=== PATIENT | male | born 1965 | race Caucasian/White ===

== ENCOUNTER 2016-09-10 08:32 | Emergency (ER) | payer OTHER ==
[~2016-09-10] VITALS: Ht 180.3 cm; Wt 80.0 kg
[~2016-09-10 08:32] MED LIST: ASPI325T PO; CLOP75TA PO; LIPI80TA PO; LISI10TA3 PO; MULT1TAB46 PO
[2016-09-10 08:37] VITALS: BP 174/94; PULSE 87; RESP 24; TEMP 97.9; O2SAT 97
[2016-09-10 08:45] VITALS: BP 178/100; PULSE 80; RESP 18; O2SAT 98
--- NOTE | 2016-09-10 08:56 | PD ---
HPI Chief Complaint: Pain: Acute or Chronic Time Seen by Provider: 08:46 Travel History International Travel<30 days: No Contact w/Intl Traveler<30days: No Traveled to known affect area: No History of Present Illness HPI 51-year-old male with history of cervical spine fracture with 2 separate surgeries, here for evaluation of neck pain and stiffness. Symptoms started yesterday morning when he woke up, and have been persistent. He is not having pain that radiates mainly on his left neck up to his left side of his head which she describes as stabbing, severe, constant, worse with movement and palpation. He denies trauma. No fevers or chills. No rash. No IVDU. No paresthesias or motor deficits. PFSH Past Medical History Cancer: No Cardiovascular Problems: Yes (PVD) High Cholesterol: Yes Diabetes: No Diminished Hearing: No Endocrine: No Genitourinary: No Hepatitis: No Hiatal Hernia: No Hypertension: Yes Immune Disorder: No Musculoskeletal: Yes (HX CERVICAL FRACTURE) Neurologic: No Psychiatric: No Reproductive: No Respiratory: No Thyroid Disease: No Tetanus Vaccination: Unknown Influenza Vaccination: No ?: Not Past Surgical History Abdominal Surgery: No Body Medical Devices: PLATE C3-4, SCREW C1 Cardiac Surgery: No Ear Surgery: No Endocrine Surgery: No Eye Surgery: No Genitourinary Surgery: No Neurologic Surgery: Yes (CERVICAL SX (20 YEARS AGO),2007 CERVICAL FUSION ) Oral Surgery: No Thoracic Surgery: No Other Surgery: Yes (POPLITEAL BYPASS ) Social History Alcohol Use: No (QUIT) Tobacco Use: Yes (1ppd) Substance Use: Yes (MARIJUANA OCCASIONALLY ) Allergies-Medications (Allergen,Severity, Reaction): Coded Allergies: No Known Allergies (Verified , 08/13/16) Reported Meds & Prescriptions Reported Meds & Active Scripts Active Clopidogrel (Clopidogrel Bisulfate) 75 Mg Tab 75 Mg PO DAILY Lipitor (Atorvastatin Calcium) 80 Mg Tab 80 Mg PO HS Lisinopril 10 Mg Tab 10 Mg PO DAILY Reported Multi Vitamin Daily (Multiple Vitamin) 1 Tab Tab 1 Tab PO DAILY Aspirin 325 Mg Tab 325 Mg PO HS Review of Systems Except as stated in HPI: all other systems reviewed are Neg Physical Exam Narrative GENERAL: Well-developed, well-nourished, no acute distress. SKIN: Warm and dry. No rash. HEAD: Atraumatic. Normocephalic. EYES: Pupils equal and round. No scleral icterus. No injection or drainage. ENT: Mucous membranes pink and moist. NECK: Trachea midline. No JVD. No midline cervical spine step-off or tenderness. Patient unwilling to move neck secondary to pain. There is point tenderness over the left trapezius and left sternocleidomastoid muscle. No masses. CARDIOVASCULAR: Regular rate and rhythm. RESPIRATORY: No accessory muscle use. Clear to auscultation. Breath sounds equal bilaterally. MUSCULOSKELETAL: No obvious deformities. No clubbing. No cyanosis. No edema. NEUROLOGICAL: Awake and alert. No obvious cranial nerve deficits. Motor grossly within normal limits. Normal speech. Normal muscle strength and sensation in bilateral upper and lower extremities. PSYCHIATRIC: Appropriate mood and affect; insight and judgment normal. Data Data Last Documented VS Vital Signs Date Time Temp Pulse Resp B/P Pulse Ox O2 Delivery O2 Flow Rate FiO2 09/10/16 11:18 56 18 125/82 97 Room Air 09/10/16 08:37 97.9 Orders Basic Metabolic Panel (Bmp) (09/10/16 08:52) Complete Blood Count With Diff (09/10/16 08:52) Prothrombin Time / Inr (Pt) (09/10/16 08:52) Act Partial Throm Time (Ptt) (09/10/16 08:52) Iv Access Insert/Monitor (09/10/16 08:52) Ecg Monitoring (09/10/16 08:52) Oximetry (09/10/16 08:52) Sodium Chloride 0.9% Flush (Ns Flush) (09/10/16 09:00) Hydromorphone Pf Inj (Dilaudid Pf Inj) (09/10/16 09:00) Orphenadrine Inj (Norflex Inj) (09/10/16 09:00) Ct Cerv Spine W/O Contrast (09/10/16 ) Ct Brain W/O Iv Contrast(Rout) (09/10/16 ) Ct Soft Tiss Neck W Iv Cont (09/10/16 ) Iohexol 350 Inj (Omnipaque 350 Inj) (09/10/16 10:51) Ketorolac Inj (Toradol Inj) (09/10/16 12:00) Labs Laboratory Tests Test 09/10/16 09:10 White Blood Count 7.9 TH/MM3 Red Blood Count 4.48 MIL/MM3 Hemoglobin 13.9 GM/DL Hematocrit 40.0 % Mean Corpuscular Volume 89.2 FL Mean Corpuscular Hemoglobin 31.1 PG Mean Corpuscular Hemoglobin 34.9 % Concent Red Cell Distribution Width 13.6 % Platelet Count 305 TH/MM3 Mean Platelet Volume 7.5 FL Neutrophils (%) (Auto) 69.4 % Lymphocytes (%) (Auto) 20.3 % Monocytes (%) (Auto) 9.5 % Eosinophils (%) (Auto) 0.5 % Basophils (%) (Auto) 0.3 % Neutrophils # (Auto) 5.5 TH/MM3 Lymphocytes # (Auto) 1.6 TH/MM3 Monocytes # (Auto) 0.8 TH/MM3 Eosinophils # (Auto) 0.0 TH/MM3 Basophils # (Auto) 0.0 TH/MM3 CBC Comment DIFF FINAL Differential Comment Prothrombin Time 10.7 SEC Prothromb Time International 1.0 RATIO Ratio Activated Partial 25.1 SEC Thromboplast Time Sodium Level 135 MEQ/L Potassium Level 4.2 MEQ/L Chloride Level 102 MEQ/L Carbon Dioxide Level 25.5 MEQ/L Anion Gap 8 MEQ/L Blood Urea Nitrogen 7 MG/DL Creatinine 1.09 MG/DL Estimat Glomerular Filtration 71 ML/MIN Rate Random Glucose 124 MG/DL Calcium Level 9.2 MG/DL MDM Medical Decision Making Medical Screen Exam Complete: Yes Emergency Medical Condition: Yes Differential Diagnosis Torticollis, muscle spasm, meningitis less likely, Narrative Course Vital signs show heart rate 87, blood pressure 174/94, pulse ox 97% on room air , oral temp of 97.9F. CBC is unremarkable. BMP is unremarkable. CT head: CONCLUSION: 1. Encephalomalacia involving the posterior and inferior aspects of the cerebellum bilaterally suggesting old infarcts. 2. Old lacunar infarct within the right thalamus. 3. No acute infarct, acute hemorrhage, mass effect or extraaxial fluid collections. 4. 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 5. Mucosal thickening involving the right frontal sinus. CT cervical spine: CONCLUSION: Stable exam. No acute abnormality noted. The loss of the cervical lordosis and kyphosis of the cervical spine contribute to osseous narrowing of the level of C3-C7. CT soft tissue neck: CONCLUSION: No acute soft tissue findings in the neck. Patient was made aware of all findings and was provided a copy of CT reports. He was given a dose of pain medication and muscle relaxant and is feeling a lot better. I do not believe he has meningitis. He is afebrile. Normal WBC count. No rash. He has no paresthesias or motor deficits on exam. I believe his symptoms are musculoskeletal in origin and he has point tenderness over his left trapezius and left sternocleidomastoid muscle. This is torticollis. He is stable for discharge home with outpatient follow-up with his primary care physician this week. He was informed on when to return to the emergency department. He verbalizes understanding and agreement with plan. The patient was counseled on smoking cessation. Diagnosis Primary Impression: Torticollis Referrals: Primary Care Physician 3 days Additional Instructions: Follow-up with your primary care physician this week. Return to the emergency department for worsening symptoms or any other concerns. Scripts Methocarbamol (Robaxin)500 Mg Gbm180 Mg PO QID #20 TAB Ref 0 Prov:Emery Madsen MD 09/10/16 Oxycodone-Acetaminophen (Percocet)10-325 mg Tab1 Tab PO Q6H PRN (PAIN) #15 TAB Ref 0 Prov:Emery Madsen MD 09/10/16 Disposition: 01 DISCHARGE HOME Condition: Stable Emery Madsen MD Sep 10, 2016 08:56
[2016-09-10] MEDS ORDERED: SODIUM CHLORIDE 0.9% FLUSH 5 ML FLUSH IVF PRN (09:00)
[2016-09-10] MEDS ORDERED: ORPHENADRINE INJ 60 MG/2 ML AMP IM ONE (09:00)
[2016-09-10] MEDS ORDERED: HYDROmorphone HCL PF 1 MG/ML VIAL IVS ONE (09:00)
[2016-09-10 09:32] VITALS: O2SAT 98
[2016-09-10 09:52] LABS: AUTOMATED NEUTROPHIL # 5.5 TH/MM3 (1.8-7.7); BASOPHIL % 0.3 % (0.0-2.0); EOSINOPHIL % 0.5 % (0.0-4.0); HEMO FLAGS DIFF FINAL; LYMPH % 20.3 % (9.0-44.0); LYMPHOCYTE # 1.6 TH/MM3 (1.0-4.8); MEAN CELL VOLUME 89.2 FL (80.0-100.0); MEAN CORPUSCULAR HEMOGLOBIN 31.1 PG (27.0-34.0); MEAN CORPUSCULAR HGB CONC 34.9 % (32.0-36.0); MONO % 9.5 % (0.0-8.0); NEUT % 69.4 % (16.0-70.0); PLATELET COUNT 305 TH/MM3 (150-450); RED BLOOD COUNT 4.48 MIL/MM3 (4.50-5.90); RED CELL DISTRIBUTION WIDTH 13.6 % (11.6-17.2); WHITE BLOOD COUNT 7.9 TH/MM3 (4.0-11.0)
[2016-09-10 10:01] LABS: APTT (PATIENT) 25.1 SEC (24.3-30.1); PROTHROMBIN TIME - PATIENT 10.7 SEC (9.8-11.6)
[2016-09-10 10:13] LABS: BICARBONATE 25.5 MEQ/L (21.0-32.0)
[2016-09-10 10:14] LABS: POTASSIUM 4.2 MEQ/L (3.5-5.1)
[2016-09-10] MEDS ORDERED: IOHEXOL 350 MG/ML 10 ML VIAL (for RAD DIAG) IV ONE (10:51)
--- NOTE | 2016-09-10 10:54 | RADRPT ---
EXAM DATE/TIME: 09/10/2016 10:37 [facility] COMPARISON: CT BRAIN W/O CONTRAST, July 24, 2011, 14:07. INDICATIONS: Cephalgia. RADIATION DOSE: 40.23 CTDIvol (mGy) MEDICAL HISTORY: Cardiovascular disease. Hypertension. SURGICAL HISTORY: Cervical fusion. ENCOUNTER: Initial ACUITY: 1 day PAIN SCALE: 10/10 LOCATION: Cranial TECHNIQUE: Multiple contiguous axial images were obtained of the head. Using automated exposure control and adj ustment of the mA and/or kV according to patient size, radiation dose was kept as low as reasonably a chievable to obtain optimal diagnostic quality images. FINDINGS: Encephalomalacia is again noted within the posterior and inferior aspects of the cerebellar hemispher es consistent with old infarcts. There is an old lacunar infarct involving the right thalamus. There i s no acute hemorrhage, midline shift or extraaxial fluid collections. The ventricles, sulci and cisterns are un remarkable. There is a calcified mass within the right frontal sinus consistent with probable osteoma which is st able. Mucosal thickening is noted within the right frontal sinus also. CONCLUSION: 1. Encephalomalacia involving the posterior and inferior aspects of the cerebellum bilaterally sugge sting old infarcts. 2. Old lacunar infarct within the right thalamus. 3. No acute infarct, acute hemorrhage, mass effect or extraaxial fluid collections. 4. 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 5. Mucosal thickening involving the right frontal sinus. Robert Rodríguez MD on September 10, 2016 at 10:45 Board Certified Radiologist. This report was verified electronically.
--- NOTE | 2016-09-10 11:15 | RADRPT ---
EXAM DATE/TIME: 09/10/2016 10:41 [facility] COMPARISON: CT CERVICAL SPINE W/O CONTRAST, May 06, 2014, 10:00. INDICATIONS : Neck pain, no known trauma. IV CONTRAST: 65 cc Omnipaque 350 (iohexol) IV RADIATION DOSE: 19.12 CTDIvol (mGy) MEDICAL HISTORY : Hypertension. Cardiovascular disease SURGICAL HISTORY : Cervical fusion. ENCOUNTER: Initial ACUITY: 1 day PAIN SCALE: 10/10 LOCATION: neck TECHNIQUE: Volumetric scanning of the neck was performed. Using automated exposure control and adjustment of th e mA and/or kV according to patient size, radiation dose was kept as low as reasonably achievable to obtain optimal diagnostic quality images. FINDINGS: NASOPHARYNX: The nasopharyngeal airway has a normal configuration. No mucosal thickening or mass is seen. OROPHARYNX: The intrinsic muscles of the tongue are symmetric. The tonsillar pillars are intact. The prevertebr al soft tissues are not thickened. LARYNX: The supraglottic, glottic, and infraglottic structures are intact. PARAPHARYNGEAL: The parapharyngeal space is intact. SALIVARY GLANDS: The parotid and submandibular glands are intact. LYMPH NODES: No enlarged or necrotic-appearing nodes. THYROID: Homogeneous enhancement without evidence of nodule. BONES: See report of CT cervical spine same date. CONCLUSION: No acute soft tissue findings in the neck. Donavan Vallejo MD on September 10, 2016 at 11:03 Board Certified Radiologist. This report was verified electronically.
[2016-09-10 11:18] VITALS: BP 125/82; PULSE 56; RESP 18; O2SAT 97
--- NOTE | 2016-09-10 11:46 | RADRPT ---
EXAM DATE/TIME: 09/10/2016 10:41 [facility] COMPARISON: CT CERVICAL SPINE W/O CONTRAST, May 06, 2014, 10:00. INDICATIONS : Neck pain, no known trauma. RADIATION DOSE: 19.12 ; Reconstructed from previous dataset MEDICAL HISTORY : Hypertension. Cardiovascular disease SURGICAL HISTORY : Cervical fusion. ENCOUNTER: Initial ACUITY: 1 day PAIN SCALE: 10/10 LOCATION: Left neck TECHNIQUE: Volumetric scanning of the cervical spine was performed. Multiplanar reconstructions in the sagittal, coronal and oblique axial planes were performed. Using automated exposure control and adjustment o f the mA and/or kV according to patient size, radiation dose was kept as low as reasonably achievable to obtain optimal diagnostic quality images. FINDINGS: There is stable fusion of c3-c4 with complete osseous incorporation of the disc. There is also fusion identified posteriorly with a screw through the left c2 transverse process. The transverse processes at the level of c2 and c3 are fused. There is loss of the normal cervical lordosis with focal reversal and kyphosis seen from the level of c3 through c7. This contributes to osseous narrowing of the spinal canal at the level of C3-C5/C6. T his is most severe at the level of C5/C6 where there is also significant bilateral neural foraminal n arrowing. No evidence of fracture or dislocation. The prevertebral soft tissues are normal. The vascular structures are significant for atherosclerosis identified within the carotid bulb. No evidence of dissection. Soft tissues are otherwise unremarkab le. CONCLUSION: Stable exam. No acute abnormality noted. The loss of the cervical lordosis and kyphosis of the cervic al spine contribute to osseous narrowing of the level of C3-C7. Klarissa Emery MD on September 10, 2016 at 11:35 Board Certified Radiologist. This report was verified electronically.
[2016-09-10] MEDS ORDERED: KETOROLAC TROMETHAMINE 30 MG/ML (IVP) VIAL IV PUSH ONE (12:00)
[2016-09-10] MEDS ORDERED: PERC10TA27 PO (12:07)
[2016-09-10] MEDS ORDERED: ROBA500T PO (12:07)
[2016-09-10 12:46] VITALS: BP 129/90; PULSE 62; RESP 18; O2SAT 97
[2017-02-22] MEDS ORDERED: CENTCHW4 PO (08:43)
[2017-02-22] MEDS ORDERED: AMOX500T PO (08:43)
[2017-02-22] MEDS ORDERED: HYDR10SO2 PO (08:43)
== END 2016-09-10 13:21 | disposition home or self-care (01) ==
LOC: NEPC 08:32
DX: M43.6 Torticollis (principal); G93.89 Other specified disorders of brain; I10 Essential (primary) hypertension; I73.9 Peripheral vascular disease, unspecified; F17.200 Nicotine dependence, unspecified, uncomplicated; Z79.02 Long term (current) use of antithrombotics/antiplatelets; Z79.82 Long term (current) use of aspirin; Z79.899 Other long term (current) drug therapy
CPT/HCPCS: 70450; 70491; 72125; 80048; 85025; 85610; 85730; 96372; 96374; 96375; 99284; J1170; J1885; J2360; Q9967

== ENCOUNTER 2016-09-28 15:00 | Emergency (ER) | payer OTHER ==
[~2016-09-28] VITALS: Ht 180.3 cm; Wt 76.6 kg
[~2016-09-28 15:00] MED LIST changes: +PERC10TA27 PO; +ROBA500T PO
[2016-09-28 15:03] VITALS: BP 176/101; PULSE 77; RESP 12; TEMP 97.6; O2SAT 99
[2016-09-28] MEDS ORDERED: DEXAMETHASONE SOD PHOS 20 MG/5 ML VIAL IM ONE (15:45)
[2016-09-28] MEDS ORDERED: KETOROLAC TROMETHAMINE 60 MG/2 ML (IM) VIAL IM ONE (15:45)
[2016-09-28] MEDS ORDERED: ORPHENADRINE INJ 60 MG/2 ML AMP IM ONE (15:45)
--- NOTE | 2016-09-28 16:01 | PD ---
HPI Chief Complaint: Back/ Neck Pain or Injury Time Seen by Provider: 15:42 Travel History International Travel<30 days: No Contact w/Intl Traveler<30days: No Traveled to known affect area: No History of Present Illness HPI Patient is a 51-year-old male who presents emergency department with complaint of neck stiffness. Patient states he was seen and evaluated here on 10 September and diagnosed with muscle spasms. Patient states that he had improvement in his symptoms while he was taking Robaxin that was prescribed at his visit in the emergency department. He denies any new injury or trauma. He states symptoms have been stable with the exception of the brief improvement while on Robaxin. He denies any other complaints at this time. He does state that he recently obtained patient assistance, and was evaluated in the clinic. He was a little disheartened that he was unable to be referred to a neurosurgeon. PFSH Past Medical History Cancer: No Cardiovascular Problems: Yes (PVD) High Cholesterol: Yes Diabetes: No Diminished Hearing: No Endocrine: No Genitourinary: No Hepatitis: No Hiatal Hernia: No Hypertension: Yes Immune Disorder: No Musculoskeletal: Yes (HX CERVICAL FRACTURE) Neurologic: No Psychiatric: No Reproductive: No Respiratory: No Thyroid Disease: No Past Surgical History Abdominal Surgery: No Body Medical Devices: PLATE C3-4, SCREW C1 Cardiac Surgery: No Ear Surgery: No Endocrine Surgery: No Eye Surgery: No Genitourinary Surgery: No Neurologic Surgery: Yes (CERVICAL SX (20 YEARS AGO),2007 CERVICAL FUSION ) Oral Surgery: No Thoracic Surgery: No Other Surgery: Yes (POPLITEAL BYPASS ) Social History Alcohol Use: No (QUIT) Tobacco Use: Yes (1ppd) Substance Use: Yes (MARIJUANA OCCASIONALLY ) Allergies-Medications (Allergen,Severity, Reaction): Coded Allergies: No Known Allergies (Verified , 09/28/16) Reported Meds & Prescriptions Reported Meds & Active Scripts Active Robaxin (Methocarbamol) 500 Mg Tab 500 Mg PO QID Percocet (Oxycodone-Acetaminophen) 10-325 mg Tab 1 Tab PO Q6H PRN Clopidogrel (Clopidogrel Bisulfate) 75 Mg Tab 75 Mg PO DAILY Lipitor (Atorvastatin Calcium) 80 Mg Tab 80 Mg PO HS Lisinopril 10 Mg Tab 10 Mg PO DAILY Reported Multi Vitamin Daily (Multiple Vitamin) 1 Tab Tab 1 Tab PO DAILY Aspirin 325 Mg Tab 325 Mg PO HS Review of Systems Except as stated in HPI: all other systems reviewed are Neg Musculoskeletal: Positive: Myalgias, Cramping, Pain Physical Exam Narrative GENERAL: Well-nourished, well-developed patient. SKIN: Warm and dry. HEAD: Normocephalic. EYES: No scleral icterus. No injection or drainage. NECK: Supple, trachea midline. No JVD or lymphadenopathy. Significantly decreased range of motion in regards to rotation of neck to the left or the right. Decreased range of motion with flexion and extension. Patient in paraspinal musculature in the cervical region. CARDIOVASCULAR: Regular rate and rhythm without murmurs, gallops, or rubs. RESPIRATORY: Breath sounds equal bilaterally. No accessory muscle use. GASTROINTESTINAL: Abdomen soft, non-tender, nondistended. MUSCULOSKELETAL: No cyanosis, or edema. 5/5 muscle strength in bilateral upper extremities. BACK: Nontender without obvious deformity. No CVA tenderness. Data Data Last Documented VS Vital Signs Date Time Temp Pulse Resp B/P Pulse Ox O2 Delivery O2 Flow Rate FiO2 09/28/16 15:03 97.6 77 12 176/101 99 Room Air Orders Dexamethasone Inj (Decadron Inj) (09/28/16 15:45) Orphenadrine Inj (Norflex Inj) (09/28/16 15:45) Ketorolac Inj (Toradol Inj) (09/28/16 15:45) MDM Medical Decision Making Medical Screen Exam Complete: Yes Emergency Medical Condition: Yes Interpretation(s) Vital Signs Date Time Temp Pulse Resp B/P Pulse Ox O2 Delivery O2 Flow Rate FiO2 09/28/16 15:03 97.6 77 12 176/101 99 Room Air Differential Diagnosis Strain versus sprain versus spasm versus discogenic pain versus other Narrative Course Patient is a 51-year-old male who presents to emergency department for reevaluation of neck spasms and pain. Patient does have a history of cervical fusion, he was seen in the emergency department approximately 2 weeks ago and was evaluated extensively with labs and CT imaging performed. Patient was diagnosed at that time with torticollis and prescribed Robaxin. Patient reports improvement while on Robaxin however he has not had any and his symptoms returned. At this time patient be given an injection of dexamethasone , Toradol, and Norflex. Will reevaluate Patient reports improvement in his symptoms, he is able to rotate his neck more than he was on arrival. Patient is encouraged follow-up with his primary doctor , continue range of motion exercises, apply warm moist heat to affected area. He is encouraged to return to emergency department immediately for any new or worsening symptoms. Patient verbalizes understanding of these instructions. Patient is stable for discharge. Diagnosis Primary Impression: Cervical paraspinal muscle spasm Referrals: Primary Care Physician Patient Instructions: General Instructions, Muscle Spasm (ED), Muscle Strain ( ED) Departure Forms: Tests/Procedures, Work Release Enter return to work date: Oct 01, 2016 Additional Instructions: Follow-up with a primary doctor Alternate heat and ice to affected area, continue range of motion exercises, avoid bed rest, avoid exacerbating activities Take medications as directed Return to emergency department with any new or worsening symptoms Med/Other Pt SpecificInfo: Prescription(s) given Scripts Ibuprofen 600 Mg [id number] Mg PO Q8HR PRN (PAIN) 10 Days Ref 0 Prov:Enma French 09/28/16 Cyclobenzaprine (Flexeril)10 Mg Tab10 Mg PO TID PRN (MUSCLE SPASM) 10 Days Ref 0 Prov:Enma French 09/28/16 Prednisone 50 Mg Tab50 Mg PO DAILY #5 TAB Ref 0 Prov:Enma French 09/28/16 Disposition: 01 DISCHARGE HOME Condition: Stable Enma French Sep 28, 2016 16:01
[2016-09-28] MEDS ORDERED: IBUP-232 PO (16:52)
[2016-09-28] MEDS ORDERED: CYCL1TAB29 PO (16:52)
[2016-09-28] MEDS ORDERED: PRED50 PO (16:52)
[2017-02-22] MEDS ORDERED: CENTCHW4 PO (08:43)
[2017-02-22] MEDS ORDERED: HYDR10SO2 PO (08:43)
[2017-02-22] MEDS ORDERED: AMOX500T PO (08:43)
== END 2016-09-28 17:02 | disposition home or self-care (01) ==
LOC: NEPB 15:00
DX: M62.838 Other muscle spasm (principal)
CPT/HCPCS: 96372; 99283; J1100; J1885; J2360

== ENCOUNTER 2017-01-12 10:33 | Emergency (ER) | payer OTHER ==
[~2017-01-12] VITALS: Ht 180.3 cm; Wt 79.0 kg
[~2017-01-12 10:33] MED LIST changes: +CYCL1TAB29 PO; +IBUP-232 PO; +PRED50 PO
[2017-01-12 10:36] VITALS: BP 144/83; PULSE 64; RESP 20; TEMP 97.8; O2SAT 99
--- NOTE | 2017-01-12 12:17 | PD ---
HPI Chief Complaint: Lump, Cyst, Hernia Time Seen by Provider: 11:20 Travel History International Travel<30 days: No Contact w/Intl Traveler<30days: No Traveled to known affect area: No History of Present Illness HPI Patient comes in complaining of right-sided rib deformity that he first noticed 2 weeks ago. Patient denies any pain with this. Denies any known trauma. Patient states that around the same time he did pull a spare tire out of the back of his truck but does not believe this caused a deformity. Patient denies any fevers, chest pain, shortness of breath, nausea, vomiting, weight loss, abdominal pain, loss or change in bowel or bladder, or numbness or tingling anywhere. Patient does report he smokes and is supposed be on antihypertensives as well as blood thinners, but he does not take them secondary to cost and lack of insurance. PFSH Past Medical History Cancer: No Cardiovascular Problems: Yes (PVD) High Cholesterol: Yes Diabetes: No Diminished Hearing: No Endocrine: No Genitourinary: No Hepatitis: No Hiatal Hernia: No Hypertension: Yes Immune Disorder: No Musculoskeletal: Yes (HX CERVICAL FRACTURE) Neurologic: No Psychiatric: No Reproductive: No Respiratory: No Thyroid Disease: No Past Surgical History Abdominal Surgery: No Body Medical Devices: PLATE C3-4, SCREW C1 Cardiac Surgery: No Ear Surgery: No Endocrine Surgery: No Eye Surgery: No Genitourinary Surgery: No Neurologic Surgery: Yes (CERVICAL SX (20 YEARS AGO),2007 CERVICAL FUSION ) Oral Surgery: No Thoracic Surgery: No Other Surgery: Yes (POPLITEAL BYPASS ) Social History Alcohol Use: No Tobacco Use: Yes Substance Use: Yes (marijuana) Allergies-Medications (Allergen,Severity, Reaction): Coded Allergies: No Known Allergies (Verified , 01/12/17) Reported Meds & Prescriptions Reported Meds & Active Scripts Active Clopidogrel (Clopidogrel Bisulfate) 75 Mg Tab 75 Mg PO DAILY Lipitor (Atorvastatin Calcium) 80 Mg Tab 80 Mg PO HS Lisinopril 10 Mg Tab 10 Mg PO DAILY Reported Aspirin 325 Mg Tab 325 Mg PO HS Review of Systems Except as stated in HPI: all other systems reviewed are Neg Physical Exam Narrative GENERAL: Well-developed, well nourished, in no acute distress, and non-ill appearing. SKIN: Focused skin assessment warm and dry. HEAD: Atraumatic. Normocephalic. EYES: Pupils equal and round. EOMI. No scleral icterus. No injection or drainage. ENT: No nasal bleeding or discharge. Mucous membranes pink and moist. NECK: Trachea midline. No JVD. Supple. No nuclear rigidity. CARDIOVASCULAR: Regular rate and rhythm. No murmur appreciated. RESPIRATORY: No accessory muscle use. No respiratory distress. Clear to auscultation. Breath sounds equal bilaterally. Palpable mass versus deformity versus other noted on the right anterior lower lateral rib cage. It is nontender. There is no crepitus, induration, step-off, or fluctuation. GASTROINTESTINAL: Abdomen soft, non-tender, nondistended. Hepatic and splenic margins not palpable. No pulsatile mass. MUSCULOSKELETAL: No obvious deformities. No clubbing. No cyanosis. No edema. Full range of motion. NEUROLOGICAL: Awake and alert. No obvious cranial nerve deficits. Motor grossly within normal limits. Normal speech. PSYCHIATRIC: Appropriate mood and affect; insight and judgment normal. Data Data Last Documented VS Vital Signs Date Time Temp Pulse Resp B/P Pulse Ox O2 Delivery O2 Flow Rate FiO2 01/12/17 13:41 88 18 119/69 97 01/12/17 10:36 97.8 Room Air Orders Ribs, Uni (W/Exp Cxr-Min 3vw) (01/12/17 ) Ct Thorax/ Chest Wo Iv Contras (01/12/17 ) MDM Medical Decision Making Medical Screen Exam Complete: Yes Emergency Medical Condition: Yes Differential Diagnosis Fracture, dislocation, mass, osteoma, other Narrative Course Patient in no obvious distress upon re-evaluation. All pertinent Radiology result(s) discussed with patient. Discussed patient with Dr. Rocha, who saw and evaluate the Patient and Is in Agreement with Plan of Care and Disposition. Any questions/concerns in reference to patient diagnosis/condition discussed and clarified prior to patient's discharge. Reinforced sheer importance of close follow up with patient's primary physician or primary care clinic. Instructed patient to return to ED immediately, if symptoms return/worsen. Pt showed understanding of above instructions. Further instructions and recommendations were detailed in discharge paperwork. Pt ambulated without difficulty out of ED at discharge. Diagnosis Primary Impression: Deformity, rib acquired Referrals: [facility] Additional Instructions: Follow-up with your primary care physician in 3-5 days for further reevaluation. Return to the emergency department if symptoms get worse. Disposition: 01 DISCHARGE HOME Condition: Stable Jg Gabriel January 12, 2017 11:23
--- NOTE | 2017-01-12 12:23 | RADRPT ---
EXAM DATE/TIME: 01/12/2017 11:37 [facility] COMPARISON: No previous studies available for comparison. INDICATIONS : right lower rib and chest pain, no known trauma.Patient feels like there is a protrusion. MEDICAL HISTORY : Cardiovascular disease. Hypertension SURGICAL HISTORY : Cervical fusion. ENCOUNTER: Initial ACUITY: 1 week PAIN SCORE: 0/10 LOCATION: Right Rib area/chest. FINDINGS: Multiple views of the right ribs were performed. There is no evidence of displaced fracture. No leah tructive lesions or areas of periosteal thickening are seen. Expiratory view of the chest is negativ e for pneumothorax. The mediastinal structures are midline. CONCLUSION: 1. There is no evidence of acute fracture. 2. Multiple small bilateral renal stones Mal Jalloh MD on January 12, 2017 at 12:19 Board Certified Radiologist. This report was verified electronically.
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
[2017-01-12 13:41] VITALS: BP 119/69
[2017-02-22] MEDS ORDERED: AMOX500T PO (08:43)
[2017-02-22] MEDS ORDERED: CENTCHW4 PO (08:43)
[2017-02-22] MEDS ORDERED: HYDR10SO2 PO (08:43)
== END 2017-01-12 13:53 | disposition home or self-care (01) ==
LOC: NEPD 10:33
DX: M95.4 Acquired deformity of chest and rib (principal); I10 Essential (primary) hypertension; F17.210 Nicotine dependence, cigarettes, uncomplicated
CPT/HCPCS: 71101; 71250

== ENCOUNTER → 2017-02-14 | Outpatient (CLI) | payer OTHER ==
[~2017-02-14] MED LIST changes: +AMOX500T PO; +CENTCHW4 PO; -CYCL1TAB29 PO; +HYDR10SO2 PO; -IBUP-232 PO; -MULT1TAB46 PO; -PERC10TA27 PO; -PRED50 PO; -ROBA500T PO
[2017-02-14 07:37] LABS: AUTOMATED NEUTROPHIL # 2.8 TH/MM3 (1.8-7.7); BASOPHIL # 0.1 TH/MM3 (0-0.2); EOSINOPHIL # 0.2 TH/MM3 (0-0.4); EOSINOPHIL % 4.7 % (0.0-4.0); HEMATOCRIT 43.2 % (39.0-51.0); HEMO FLAGS DIFF FINAL; LYMPH % 33.5 % (9.0-44.0); LYMPHOCYTE # 1.7 TH/MM3 (1.0-4.8); MEAN CELL VOLUME 89.8 FL (80.0-100.0); MEAN CORPUSCULAR HEMOGLOBIN 29.3 PG (27.0-34.0); MEAN CORPUSCULAR HGB CONC 32.7 % (32.0-36.0); MONO % 7.4 % (0.0-8.0); NEUT % 53.4 % (16.0-70.0); PLATELET COUNT 269 TH/MM3 (150-450); RED BLOOD COUNT 4.81 MIL/MM3 (4.50-5.90); RED CELL DISTRIBUTION WIDTH 13.6 % (11.6-17.2); WHITE BLOOD COUNT 5.2 TH/MM3 (4.0-11.0)
[2017-02-14 07:58] LABS: ANION GAP 8 MEQ/L (5-15); AST (GOT) 22 U/L (15-37); BICARBONATE 25.4 MEQ/L (21.0-32.0); BLOOD UREA NITROGEN 9 MG/DL (7-18); CHLORIDE 107 MEQ/L (98-107); GLOMERULAR FILTRATION RATE 65 ML/MIN (>89); GLUCOSE,FASTING 89 MG/DL (74-99); POTASSIUM 4.4 MEQ/L (3.5-5.1); SODIUM (NA) 140 MEQ/L (136-145)
[2017-02-14 08:08] LABS: ALKALINE PHOSPHATASE 90 U/L (45-117); ALT (GPT) 26 U/L (12-78); HDL CHOLESTEROL 44.6 MG/DL (40.0-60.0); LDL CHOLESTEROL 63 MG/DL (0-99); TOTAL BILIRUBIN ADULT 0.3 MG/DL (0.2-1.0)
== END ==
LOC: CLAB 06:52
PROVIDERS: ATTEND Physician Assistant Medical
DX: E78.5 Hyperlipidemia, unspecified (principal); I10 Essential (primary) hypertension; I73.9 Peripheral vascular disease, unspecified; Z72.0 Tobacco use
CPT/HCPCS: 36415; 80053; 80061; 84443; 85025

== ENCOUNTER 2017-04-24 14:36 | Emergency (ER) | payer OTHER ==
[~2017-04-24 14:36] MED LIST changes: -AMOX500T PO; -HYDR10SO2 PO
[2017-04-24 14:37] VITALS: BP 153/81; PULSE 92; RESP 20; TEMP 98.4; O2SAT 98
[2017-04-24 14:44] VITALS: BP 162/104; PULSE 70; RESP 20; TEMP 98.4; O2SAT 99
--- NOTE | 2017-04-24 15:36 | PD ---
HPI Chief Complaint: Eye Problems/Injury Time Seen by Provider: 15:17 Travel History International Travel<30 days: No Contact w/Intl Traveler<30days: No Traveled to known affect area: No History of Present Illness HPI 52-year-old male presents to the emergency department believing he had some metal in his left eye. He states that he was drilling holes into steel yesterday evening. He was wearing protective eye care. However, he states he sterile irritation in the left eye today. He denies any visual changes. He states his last tetanus immunization was approximately one year ago. Patient denies any other complaints at this time. PFSH Past Medical History Hx Anticoagulant Therapy: Yes (PT HASN'T BEEN ABLE TO AFFORD THINNER FOR 2 MONTHS. ) Cancer: No Cardiovascular Problems: Yes (HTN, FEMORAL POPLITEAL BYPASS.) High Cholesterol: Yes Diabetes: No Diminished Hearing: No Endocrine: No Genitourinary: No Hepatitis: No Hiatal Hernia: No Hypertension: Yes Immune Disorder: No Musculoskeletal: Yes (HX CERVICAL FRACTURE) Neurologic: No Psychiatric: No Reproductive: No Respiratory: No Thyroid Disease: No Past Surgical History Abdominal Surgery: No Body Medical Devices: PLATE C3-4, SCREW C1 Cardiac Surgery: No Ear Surgery: No Endocrine Surgery: No Eye Surgery: No Genitourinary Surgery: No Neurologic Surgery: Yes (CERVICAL SX (20 YEARS AGO),2007 CERVICAL FUSION ) Oral Surgery: No Thoracic Surgery: No Other Surgery: Yes (POPLITEAL BYPASS ) Social History Alcohol Use: No Tobacco Use: Yes (1/2 pack day) Substance Use: Yes (marijuana occaisonal) Allergies-Medications (Allergen,Severity, Reaction): Coded Allergies: No Known Allergies (Verified , 04/24/17) Reported Meds & Prescriptions Reported Meds & Active Scripts Active Clopidogrel (Clopidogrel Bisulfate) 75 Mg Tab 75 Mg PO DAILY Lipitor (Atorvastatin Calcium) 80 Mg Tab 80 Mg PO HS Lisinopril 10 Mg Tab 10 Mg PO DAILY Reported Centrum (Multiple Vitamins W/ Minerals) 1 Chew 1 Tab PO DAILY Aspirin 325 Mg Tab 325 Mg PO HS Review of Systems Except as stated in HPI: all other systems reviewed are Neg Physical Exam Narrative GENERAL: Well-nourished, well-developed male patient, afebrile. SKIN: Focused skin assessment warm/dry. HEAD: Normocephalic. Atraumatic. EYES: No scleral icterus. No injection or drainage. No foreign body seen on upper lid eversion. Fluorescein examination is negative. PERRLA. EOM intact. No hyphema. NECK: Supple, trachea midline. No JVD or lymphadenopathy. CARDIOVASCULAR: Regular rate and rhythm without murmurs, gallops, or rubs. RESPIRATORY: Breath sounds equal bilaterally. No accessory muscle use. Lungs sounds are clear to auscultation. GASTROINTESTINAL: Abdomen soft, non-tender, nondistended. MUSCULOSKELETAL: No cyanosis, or edema. BACK: Nontender without obvious deformity. No CVA tenderness. Data Data Last Documented VS Vital Signs Date Time Temp Pulse Resp B/P (MAP) Pulse Ox O2 Delivery O2 Flow Rate FiO2 04/24/17 14:44 98.4 70 20 162/104 (123) 99 Room Air Orders Orders Proparacaine 0.5% Opth Soln (Alcaine 0.5 (04/24/17 15:45) MDM Medical Decision Making Medical Screen Exam Complete: Yes Emergency Medical Condition: Yes Medical Record Reviewed: Yes Differential Diagnosis Conjunctival foreign body versus conjunctivitis versus iritis versus corneal abrasion versus corneal ulcer Narrative Course 52-year-old male presents to the emergency department for possible foreign body to the left eye. He does appear well on exam. There is no foreign body on upper lid eversion. Fluorescein examination is negative. Visual acuity is 20/ 50 bilaterally. I instructed him do cool compresses and reassured the patient has no evidence of foreign body in his eye at this time. No corneal abrasion. I will discharge him with a prescription for erythromycin ointment. He is to follow up client support administrator if symptoms continue or worsen. He verbalizes agreement and understanding. The patient was discharged in stable condition with instructions, including return instructions and follow up instructions. Diagnosis Primary Impression: Eye irritation Referrals: A P Mechanic as needed Patient Instructions: Eye Pain (ED), General Instructions Additional Instructions: Use erythromycin eye ointment as directed. Cool compresses. Follow-up with your primary care physician. Return to the emergency department for any acute worsening of symptoms. Med/Other Pt SpecificInfo: Prescription(s) given Scripts Erythromycin Opth Oint (Erythromycin Opth Oint) 5 Mg/Gm Oint 1 APPLIC LEFT EYE QID for Infection, #1 TUBE 0 Refills Prov: Heidy Wilkins 04/24/17 Disposition: 01 DISCHARGE HOME Condition: Stable FrankyHeidy IZAGUIRRE Apr 24, 2017 15:36
[2017-04-24] MEDS ORDERED: PROPARACAINE HCL 0.5% OPHT SOLN 15 ML BTL LEFT EYE ONE (15:45)
[2017-04-24] MEDS ORDERED: ERYTOIN10 LEFT EYE (15:57)
[2017-04-27] MEDS ORDERED: LISI10TA3 PO (14:01)
== END 2017-04-24 16:12 | disposition home or self-care (01) ==
LOC: NEPD 14:36
DX: T15.92XA Foreign body on external eye, part unspecified, left eye, initial encounter (principal); I10 Essential (primary) hypertension; E78.00 Pure hypercholesterolemia, unspecified; F17.200 Nicotine dependence, unspecified, uncomplicated; Z79.82 Long term (current) use of aspirin; Z79.899 Other long term (current) drug therapy
CPT/HCPCS: 99283

== ENCOUNTER 2017-05-21 16:36 | Emergency (ER) | payer OTHER ==
[~2017-05-21] VITALS: Ht 180.3 cm; Wt 70.0 kg
[~2017-05-21 16:36] MED LIST changes: +ERYTOIN10 LEFT EYE
[2017-05-21 16:39] VITALS: BP 154/85; PULSE 80; RESP 20; TEMP 97.9; O2SAT 97
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
[2017-05-21] MEDS ORDERED: TETANUS/DIPHTHERIA TOXOID ADULT 0.5 ML VIAL IM ONE (19:30)
[2017-05-21] MEDS ORDERED: LIDOCAINE HCL 1% 20 ML VIAL INFIL ONE (19:30)
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
== END 2017-05-21 20:14 | disposition home or self-care (01) ==
LOC: NEPD 16:36
DX: S51.811A Laceration without foreign body of right forearm, initial encounter (principal); W26.8XXA Contact with other sharp object(s), not elsewhere classified, initial encounter; Y93.H3 Activity, building and construction; Y92.008 Other place in unspecified non-institutional (private) residence as the place of occurrence of the external cause; Z23 Encounter for immunization; I10 Essential (primary) hypertension; Z72.0 Tobacco use
CPT/HCPCS: 12002; 90471; 90714